=== PATIENT | female | born 1955 | race Caucasian/White ===

== ENCOUNTER → 2017-02-25 | Outpatient (CLI) | payer MEDICARE, MEDICAID ==
--- NOTE | 2017-02-25 12:29 | Diagnostic Imaging Report ---
EXAMINATION: PA and lateral views of the chest. INDICATION: Pneumonitis. Increasing shortness of breath. COMPARISON: No prior studies are available for comparison. FINDINGS: The lungs demonstrate no focal infiltrates. There is minimal prominence of the interstitial markings. No effusion or pneumothorax. The mediastinum and pérez appear unremarkable. IMPRESSION: Slight prominence of the interstitial markings. No focal infiltrate. Dictated by: Dictated on workstation # [id number]
== END ==
LOC: RAD 11:10
PROVIDERS: ATTEND Nurse Practitioner Family
DX: J18.9 Pneumonia, unspecified organism (principal)
CPT/HCPCS: 71020

== ENCOUNTER → 2017-04-01 | Outpatient (CLI) | payer MEDICARE, MEDICAID ==
--- NOTE | 2017-04-01 10:35 | Diagnostic Imaging Report ---
PROCEDURE: CT chest without contrast. TECHNIQUE: Multiple contiguous axial images were obtained through the chest without the use of intravenous contrast. INDICATION: Shortness of breath and congestion. COMPARISON: 02/08/2016 FINDINGS: The lungs are clear. Minimal obstructive changes are suspected, improved from the prior study. No pneumothorax or pleural fluid. There is no adenopathy. Heart size appears normal. There is no pericardial effusion. No acute abnormality is seen in the visualized upper abdomen. No acute osseous abnormality is seen. IMPRESSION: Minimal instructed changes suspected, improved from the prior study. Previously described central bronchial wall thickening has resolved. No acute abnormality is seen in the chest today. Dictated by: Dictated on workstation # [id number]
== END ==
LOC: RAD 10:09
PROVIDERS: ATTEND Nurse Practitioner Family
DX: J18.9 Pneumonia, unspecified organism (principal)
CPT/HCPCS: 71250

== ENCOUNTER → 2018-06-23 | Outpatient (CLI) | payer MEDICARE, MEDICAID ==
--- NOTE | 2018-06-23 12:25 | Diagnostic Imaging Report ---
INDICATION: Shortness of breath PA and lateral chest Heart size and pulmonary vascularity are normal. Lungs are clear. There are no effusions or pneumothoraces. IMPRESSION: Negative chest. Dictated by: Dictated on workstation # [id number]
== END ==
LOC: RAD 09:29
PROVIDERS: ATTEND Internal Medicine Critical Care Medicine
DX: J44.9 Chronic obstructive pulmonary disease, unspecified (principal); G47.34 Idiopathic sleep related nonobstructive alveolar hypoventilation; G47.33 Obstructive sleep apnea (adult) (pediatric); J98.4 Other disorders of lung
CPT/HCPCS: 71046

== ENCOUNTER → 2019-03-11 | Outpatient (CLI) | payer MEDICARE, MEDICAID ==
--- NOTE | 2019-03-11 12:18 | Diagnostic Imaging Report ---
EXAMINATION: CT low-dose lung cancer screening exam. INDICATION: 44 pack-year smoking history. FINDINGS: Routine images of the thorax were obtained using the CT low-dose lung cancer screening protocol. There are no prior low-dose lung cancer screening examinations available for comparison. The CT chest exam performed on 04/01/2017 noted chronic pulmonary changes but failed to show any evidence for an acute abnormality. On this exam, there is no discrete parenchymal lung mass identified. There are mild emphysematous changes involving both lungs. There is no evidence for failure, pneumonia, or for a pleural effusion. The heart size is mildly enlarged. There are coronary artery calcifications evident. The aorta is not abnormally dilated. There is no obvious mediastinal or hilar adenopathy. The thyroid gland is not particularly well visualized. There is no obvious breast mass. The sections through the upper abdomen fail to show any sign of an acute abnormality. The bone windows are unremarkable for a fracture or for a destructive lesion. IMPRESSION: 1. There is no parenchymal lung mass identified. A follow-up low-dose lung cancer screening exam in one year will be recommended for continued evaluation. 2. There are chronic pulmonary changes evident, but there is no sign of an acute cardiopulmonary abnormality. 3. The heart is mildly enlarged and there are coronary artery calcifications evident. LUNG-RADS CATEGORY: 1 - Negative. No lung nodules. Continue annual screening with LDCT in 12 months. Dictated by: Dictated on workstation # [id number]
== END ==
LOC: RAD 10:29
PROVIDERS: ATTEND Nurse Practitioner Family
DX: Z12.2 Encounter for screening for malignant neoplasm of respiratory organs (principal); G47.33 Obstructive sleep apnea (adult) (pediatric); J44.9 Chronic obstructive pulmonary disease, unspecified; G47.36 Sleep related hypoventilation in conditions classified elsewhere; G47.10 Hypersomnia, unspecified; J98.4 Other disorders of lung; I51.7 Cardiomegaly; I25.10 Atherosclerotic heart disease of native coronary artery without angina pectoris; Z87.891 Personal history of nicotine dependence

== ENCOUNTER → 2019-03-22 | Outpatient (CLI) | payer MEDICARE, MEDICAID ==
[~2019-03-22] MED LIST: RT-ALBUTEROL SULF 2.5 MG/3 ML PRE-MIX VIAL INH ONE; RT-ALBUTEROL SULF 2.5 MG/3 ML PRE-MIX VIAL ONE
== END ==
LOC: RT 14:06
PROVIDERS: ATTEND Nurse Practitioner Family
DX: G47.33 Obstructive sleep apnea (adult) (pediatric) (principal); J44.9 Chronic obstructive pulmonary disease, unspecified; G47.34 Idiopathic sleep related nonobstructive alveolar hypoventilation; G47.10 Hypersomnia, unspecified; J98.4 Other disorders of lung
CPT/HCPCS: 94060; 94640; 94726; 94729

== ENCOUNTER 2019-06-10 09:30 | Outpatient (RCR) | payer MEDICARE, MEDICAID ==
--- NOTE | 2019-04-07 13:19 | NUR ---
Pt ordered to go through pulmonary rehab; looked up file to see information to contact insurance for information regarding pulmonary rehab, per pt's request.
[2019-05-11 09:10] VITALS: BP 137/70
[2019-05-11 10:20] VITALS: BP 130/64
[2019-05-13 09:30] VITALS: BP 140/82
[2019-05-13 10:45] VITALS: BP 130/80
[2019-05-18 09:00] VITALS: BP 130/60
[2019-05-18 10:09] VITALS: BP 120/85
[2019-05-20 09:02] VITALS: BP 130/70
[2019-05-20 10:10] VITALS: BP 140/60
[2019-05-25 09:05] VITALS: BP 120/88
[2019-05-25 10:25] VITALS: BP 130/80
[2019-05-27 09:05] VITALS: BP 126/68
[2019-05-27 10:12] VITALS: BP 101/50
[2019-06-01 09:15] VITALS: BP 125/60
[2019-06-01 09:20] VITALS: BP 125/60
[2019-06-01 10:20] VITALS: BP 122/80
[2019-06-08 09:05] VITALS: BP 123/60
[2019-06-08 10:28] VITALS: BP 115/60
[2019-06-10 09:10] VITALS: BP 140/88
[2019-06-10 10:32] VITALS: BP 130/50
[2019-06-15 08:50] VITALS: BP 120/60
[2019-06-15 10:10] VITALS: BP 119/74
[2019-06-17 09:10] VITALS: BP 120/78
[2019-06-17 09:40] VITALS: BP 138/60
== END 2019-07-06 | disposition home or self-care (01) ==
LOC: PULM 09:30
PROVIDERS: ATTEND Nurse Practitioner Family
DX: J98.4 Other disorders of lung (principal); J44.9 Chronic obstructive pulmonary disease, unspecified
CPT/HCPCS: 99211

== ENCOUNTER → 2020-02-15 | Outpatient (CLI) | payer MEDICARE, MEDICAID ==
--- NOTE | 2020-02-16 09:21 | Diagnostic Imaging Report ---
Indication: Routine screening. Comparison is made with prior mammogram 01/07/2019 and 01/02/2018. 2-D and 3-D bilateral screening mammography was performed with CAD. Both breasts are heterogeneously dense, limiting the sensitivity of mammography. There are numerous circumscribed nodules in both breasts which appear benign. These do wax and wane in size and are most consistent with cysts. No spiculated mass or malignant appearing microcalcifications are seen. There are benign calcifications in both breasts. Axillae are unremarkable. IMPRESSION: BI-RADS Category 2 No mammographic features suspicious for malignancy are identified. ACR BI-RADS Category 2: Benign findings. Result letter will be mailed to the patient. Note: At least 10% of breast cancer is not imaged by mammography. Dictated by: Dictated on workstation # [id number]
== END ==
LOC: RAD 10:15
PROVIDERS: ATTEND Obstetrics & Gynecology
DX: Z12.31 Encounter for screening mammogram for malignant neoplasm of breast (principal)
CPT/HCPCS: 77063; 77067

== ENCOUNTER → 2020-03-13 | Outpatient (CLI) | payer MEDICARE, MEDICAID ==
--- NOTE | 2020-03-13 09:57 | Diagnostic Imaging Report ---
CT Lung Screening INDICATION:66 pack-year smoking history TECHNIQUE: Noncontrast, low-dose CT imaging performed according to the lung cancer screening protocol. Auto Exposure Controls were utilize during the CT exam to meet ALARA standards for radiation dose reduction. COMPARISON:03/11/2019 FINDINGS:The previous CT low-dose lung cancer screening exam of 03/11/2019 failed to show any sign of parenchymal abnormality that would indicate a neoplastic mass. On this exam the lungs remain generally clear. There still no parenchymal lung mass identified. There is no sign of failure, pneumonia or pleural effusion to indicate an acute abnormality. The heart is stable in size when compared to prior exam. Coronary calcifications are again noted. The aorta is not abnormally dilated. There is no mediastinal or hilar adenopathy. The thyroid gland is generally unremarkable. There is no obvious breast mass. The sections through the upper abdomen failed to show any sign of an acute abnormality. The bone windows are unremarkable for fracture or for destructive lesion. IMPRESSION: 1. There is still no evidence for parenchymal lung mass. A followup low-dose lung cancer screening exam in one year would be recommended for continued evaluation. 2. There is no acute cardiopulmonary abnormality noted. LUNG-RADS CATEGORY:1 MODIFIER: OTHER SIGNIFICANT FINDINGS: Dictated by: Dictated on workstation # [id number]
== END ==
LOC: RAD 09:15
PROVIDERS: ATTEND Nurse Practitioner Family
DX: Z12.11 Encounter for screening for malignant neoplasm of colon (principal); Z87.891 Personal history of nicotine dependence

== ENCOUNTER → 2021-04-12 | Outpatient (CLI) | payer MEDICARE, MEDICAID ==
--- NOTE | 2021-04-12 15:02 | Diagnostic Imaging Report ---
INDICATION: Routine screening. COMPARISON is made with prior mammograms from 02/15/2020 and 01/07/2019. 2-D and 3-D bilateral screening mammography was performed with CAD. Both breasts are heterogeneously dense, limiting the sensitivity of mammography. A circumscribed nodular densities throughout both breasts appear stable. There are benign calcifications throughout both breasts. No spiculated mass or malignant-appearing microcalcifications are seen. Axillae are unremarkable. IMPRESSION: BI-RADS Category 2 No mammographic features suspicious for malignancy are identified. ACR BI-RADS Category 2: Benign findings. Result letter will be mailed to the patient. Note: At least 10% of breast cancer is not imaged by mammography. Dictated by: Dictated on workstation # [id number]
== END ==
LOC: RAD 14:45
PROVIDERS: ATTEND Student in an Organized Health Care Education/Training Program
DX: Z12.31 Encounter for screening mammogram for malignant neoplasm of breast (principal)
CPT/HCPCS: 77063; 77067

== ENCOUNTER → 2022-04-16 | Outpatient (CLI) | payer MEDICARE, MEDICAID ==
--- NOTE | 2022-04-16 15:16 | Diagnostic Imaging Report ---
INDICATION: Routine screening. COMPARISON: 04/12/2021 and 02/15/2020. TECHNIQUE: 2D and 3D bilateral screening mammography was performed with CAD. FINDINGS: Scattered fibroglandular densities are identified bilaterally. Nodular densities in both breasts appear stable. Benign calcifications in both breasts are again noted. No spiculated mass or malignant-appearing microcalcifications are identified. The axillae are unremarkable. IMPRESSION: No mammographic features suspicious for malignancy are identified. ACR BI-RADS Category 2: Benign findings. Result letter will be mailed to the patient. Note: At least 10% of breast cancer is not imaged by mammography. Dictated by: Dictated on workstation # [id number]
== END ==
LOC: RAD 10:20
PROVIDERS: ATTEND Nurse Practitioner Family
DX: Z12.31 Encounter for screening mammogram for malignant neoplasm of breast (principal)
CPT/HCPCS: 77063; 77067